=== PATIENT | male | born 1950 | race African-American/Black ===

== ENCOUNTER 2021-10-17 01:51 | Emergency (ER) | payer MEDICARE, MEDICAID ==
[~2021-10-17] VITALS: Ht 175.3 cm; Wt 100.0 kg
[2021-10-17] MEDS ORDERED: IBUP-2028 MT (02:55)
[2021-10-17] MEDS ORDERED: TOPUD PO (02:55)
[2021-10-17] MEDS ORDERED: METH-653 MT (02:55)
[2021-10-17] MEDS ORDERED: LIDO1ADH23 TP (02:55)
[2021-10-17] MEDS ORDERED: IBUPROFEN 400MG TABLET PO ONE (03:15)
[2021-10-17] MEDS: LIDOCAINE 5% PATCH TOP SCH ×2 (03:15→03:28)
[2021-10-17] MEDS ORDERED: ACETAMINOPHEN 325MG TABLET PO ONE (03:15)
[2021-10-17 05:18] VITALS: BP 110/78
== END 2021-10-17 05:35 | disposition home or self-care (01) ==
LOC: ER 01:51
DX: S50.311A Abrasion of right elbow, initial encounter (principal); M25.551 Pain in right hip; M54.50 Low back pain, unspecified; F32.A Depression, unspecified; I10 Essential (primary) hypertension; W01.0XXA Fall on same level from slipping, tripping and stumbling without subsequent striking against object, initial encounter; Y93.89 Activity, other specified; Y92.018 Other place in single-family (private) house as the place of occurrence of the external cause
CPT/HCPCS: 73080; 73502; 99284